=== PATIENT | male | born 1960 | race African-American/Black ===

== ENCOUNTER 2017-02-04 10:55 | Emergency (ER) | payer OTHER ==
[~2017-02-04] VITALS: Ht 177.8 cm; Wt 82.0 kg
[~2017-02-04 10:55] MED LIST: HUMOLOG; INSLAN; UNK HTN MEDS
[2017-02-04] MEDS ORDERED: MORPHINE SULFATE 4 MG/ML CPJ (NOT FOR IM USE) IV ONE ×3 (11:45→17:00)
[2017-02-04] MEDS: ONDANSETRON HCL 4MG/2ML VIAL IV ONE ×2 (11:56→12:08)
[2017-02-04 12:55] LABS: EOSINOPHILS % 1.6 % (0.0-5.0); HEMATOCRIT. 41.5 % (42.0-52.0); HEMOGLOBIN. 13.6 g/dL (14.0-18.0); LYMPHOCYTES % 15.2 % (20.0-50.0); MEAN CORPUSCULAR HEMOGLOBIN 26.8 pg (28.0-32.0); MEAN CORPUSCULAR HGB CONC 32.8 g/dL (31.0-37.0); MEAN CORPUSCULAR VOLUME 81.8 fL (80.0-94.0); MEAN PLATELET VOLUME 7.6 fl (7.4-10.4); MONOCYTES % 7.2 % (2.0-8.0); PLATELET 296 x1000/uL (130-400); RED BLOOD CELL COUNT 5.08 mill/uL (4.7-6.1)
[2017-02-04 13:06] LABS: ANION GAP 13; CALCIUM 8.9 mg/dL (8.5-10.1); CARBON DIOXIDE 28 mEq/L (21-32); CHLORIDE 98 mEq/L (98-107); INDEX HEMOLYSI 1 (1-3); INDEX ICTERIC 1 (1-4); INDEX LIPEMIC 1 (1-3); UREA NITROGEN BLOOD 13 mg/dL (7-21); eGFR > 60 mL/min (>60)
[2017-02-04 18:47] VITALS: BP 139/83
== END 2017-02-04 19:30 | disposition short-term general hospital (02) ==
LOC: ER 11:07
DX: S82.392A Other fracture of lower end of left tibia, initial encounter for closed fracture (principal); S82.832A Other fracture of upper and lower end of left fibula, initial encounter for closed fracture; S82.892A Other fracture of left lower leg, initial encounter for closed fracture; E11.9 Type 2 diabetes mellitus without complications; E78.00 Pure hypercholesterolemia, unspecified; I10 Essential (primary) hypertension; F17.210 Nicotine dependence, cigarettes, uncomplicated; F12.10 Cannabis abuse, uncomplicated; V28.0XXA Motorcycle driver injured in noncollision transport accident in nontraffic accident, initial encounter; Y93.89 Activity, other specified; Y92.488 Other paved roadways as the place of occurrence of the external cause
CPT/HCPCS: 29505; 36415; 73590; 73610; 73630; 80048; 82962; 85025; 96374; 96375; 96376; 99285; J2270; J2405; Z7610

== ENCOUNTER 2024-01-30 22:01 | Emergency (ER) | payer OTHER ==
[~2024-01-30] VITALS: Ht 175.3 cm; Wt 80.0 kg
[2024-01-30 22:06] VITALS: O2SAT 96
[2024-01-31 03:33] VITALS: BP 145/87; PULSE 72; RESP 18; TEMP 98.6
== END 2024-01-31 03:40 | disposition home or self-care (01) ==
LOC: ER 22:01
DX: E11.649 Type 2 diabetes mellitus with hypoglycemia without coma (principal); F12.10 Cannabis abuse, uncomplicated; E78.00 Pure hypercholesterolemia, unspecified; I10 Essential (primary) hypertension
CPT/HCPCS: 82962; 99283